=== PATIENT | female | born 1970 | race Caucasian/White ===

== ENCOUNTER 2021-01-07 08:14 | Inpatient (IN) | payer BC, SELFPAY ==
[2021-01-07] MEDS ORDERED: Sodium Chloride 0.9% 1,000 ML ONE (08:54)
[2021-01-07] MEDS ORDERED: Sodium Chloride 0.9% 100 ML ONE (08:55)
[2021-01-07] MEDS ORDERED: methylPREDNISolone Sod Succ/PF 125 MG/2 ML VIAL ONE (08:55)
[2021-01-07] MEDS ORDERED: cefTRIAXone\\ROCEPHIN 2 GM VIAL ONE (08:55)
[2021-01-07 09:04] LABS: #Basophils 0.1 thou/uL (0.0-0.2); #Eosinphils 0.2 thou/uL (0.0-0.7); #Lymphocytes 1.6 thou/uL (1.20-3.40); #Monocytes 0.7 thou/uL (0.11-0.59); %Basophils 1.8 % (0.0-1.0); %Eosinophils 2.8 % (0.0-10.0); %Lymphocytes 21.2 % (21.0-51.0); %Monocytes 8.7 % (0.0-10.0); %Neutrophils 65.6 % (42.0-75.0); Mean Corpuscular Hemoglobin 30.1 pg (27.0-31.0); Mean Corpuscular Volume 94.1 fL (78.0-98.0); Mean Platelet Volume 8.5 fL (7.4-10.4); Platelet Count 217 thou/uL (130-400); RBC Distribution Width 12.8 % (11.5-14.5); White Blood Cell (WBC) Count 7.7 thou/uL (4.8-10.8)
[2021-01-07] MEDS ORDERED: Magnesium 2 GM/50 ML BAG (IN WATER) ONE (09:09)
[2021-01-07 09:18] LABS: ALT (SGPT) 25 U/L (8-55); AST (SGOT) 19 U/L (5-34); Albumin 4.3 g/dL (3.5-5.0); Alkaline Phosphatase 85 U/L (40-110); Anion Gap 15 mmol/L (10-20); BUN (Urea Nitrogen) 8 mg/dL (9.8-20.1); Bilirubin, Total 0.5 mg/dL (0.2-1.2); CK (CPK) 113 U/L (29-168); Calc. Creatinine Clearance 0 mL/min (70-130); Calcium 9.2 mg/dL (7.8-10.44); Carbon Dioxide 24 mmol/L (22-29); Chloride 103 mmol/L (98-107); Globulin 2.9 g/dL (2.4-3.5); Glucose 102 mg/dL (70-105); Potassium 3.9 mmol/L (3.5-5.1); Protein, Total 7.2 g/dL (6.0-8.3); Sodium 138 mmol/L (136-145)
[2021-01-07] MEDS ORDERED: Sodium Chloride For Inhalation 0.9% 3 ML NEB ONE ×2 (09:29→09:34)
[2021-01-07] MEDS ORDERED: Albuterol Sulfate 2.5 mg/0.5 ml Neb ONE (09:29)
[2021-01-07 10:47] LABS: SARS-CoV-2 NAA Rapid Test Not Detected (NotDetected)
[2021-01-07 13:04] VITALS: BMI 43.0
[2021-01-07] MEDS ORDERED: Acetaminophen 325 MG TAB PO PRN (13:37)
[2021-01-07] MEDS: Albuterol 200 PUFF (6.7GM INHALER) INH PRN (14:25)
[2021-01-07] MEDS ORDERED: methylPREDNISolone Sod Succ/PF 125 MG/2 ML VIAL IVP SCH (15:00)
[2021-01-07] MEDS ORDERED: Zolpidem Tartrate 5 MG TAB PO PRN (20:02)
[2021-01-07] MEDS ORDERED: Non-Formulary Item 1 EACH (Albuterol Sulfate [Proair Digihaler] 90 MCG Aer.Pw.Bas) INH PRN (20:04)
[2021-01-07] MEDS: Zolpidem Tartrate 5 MG TAB PO SCH (20:38)
[2021-01-07] MEDS ORDERED: Zolpidem Tartrate 5 MG TAB PO SCH (21:00)
[2021-01-07] MEDS: methylPREDNISolone Sod Succ 40 MG VIAL IVP SCH (23:21)
[2021-01-08] MEDS: methylPREDNISolone Sod Succ 40 MG VIAL IVP SCH ×4 (05:10→23:59)
[2021-01-08] MEDS ORDERED: buPROPion HCl 100 MG TAB PO SCH (09:00)
[2021-01-08] MEDS ORDERED: Non-Formulary Item 1 EACH (Fluticasone/Umeclidin/Vilanter [Trelegy Ellipta 100-62.5-25] 1 INH SCH (09:00)
[2021-01-08] MEDS: TRELEGY ELLIPTA INH SCH (09:54)
[2021-01-08] MEDS: Albuterol 200 PUFF (6.7GM INHALER) INH PRN (09:54)
[2021-01-08] MEDS: buPROPion HCl 100 MG TAB PO SCH (09:54)
[2021-01-08] MEDS: Zolpidem Tartrate 5 MG TAB PO SCH (20:29)
[2021-01-08] MEDS ORDERED: Sodium Chloride 0.9% 10 ML ONE (23:57)
[2021-01-09] MEDS: methylPREDNISolone Sod Succ 40 MG VIAL IVP SCH ×3 (05:39→11:21)
[2021-01-09] MEDS: buPROPion HCl 100 MG TAB PO SCH (09:02)
[2021-01-09] MEDS: TRELEGY ELLIPTA INH SCH (09:05)
[2021-01-09 16:34] VITALS: BP 172/84; TEMP 97.2
[2021-01-09] MEDS ORDERED: Albuterol Sulfate 2.5 mg/3 ml Neb NEB PRN (17:41)
[2021-01-10] MEDS ORDERED: predniSONE 20 MG TAB PO SCH (08:00)
== END 2021-01-09 18:30 | disposition home or self-care (01) | DRG 202 ==
LOC: NAV ERS 08:14 → OBSVTOIN 12:27 → NAV ACUTE 12:27
PROVIDERS: ADMIT Internal Medicine; ATTEND Internal Medicine
DX: J45.901 Unspecified asthma with (acute) exacerbation (principal); J44.1 Chronic obstructive pulmonary disease with (acute) exacerbation; B97.4 Respiratory syncytial virus as the cause of diseases classified elsewhere; I27.20 Pulmonary hypertension, unspecified; F41.9 Anxiety disorder, unspecified; Z20.822 Contact with and (suspected) exposure to COVID-19; G47.33 Obstructive sleep apnea (adult) (pediatric); Z87.891 Personal history of nicotine dependence; Z79.51 Long term (current) use of inhaled steroids; Z98.890 Other specified postprocedural states
CPT/HCPCS: 0241U; 71045; 80053; 82550; 83605; 83880; 84484; 85025; 87040; 93005; 94640; 94644; 96365; 96367; 96375; J0696; J2920; J2930; J3475; J3490; J7050; J7611; J7620